=== PATIENT | male | born 1980 | race American Indian/Alaskan Native ===

== ENCOUNTER 2017-11-13 10:31 | Emergency (ER) | payer MEDICAID ==
[~2017-11-13] VITALS: Ht 167.6 cm; Wt 54.4 kg
[2017-11-13 10:44] VITALS: BP_SYST 138
[2017-11-13 11:40] VITALS: BP_SYST 138
== END 2017-11-13 11:39 | disposition home or self-care (01) ==
LOC: SED 10:31
DX: S40.861A Insect bite (nonvenomous) of right upper arm, initial encounter (principal); L53.8 Other specified erythematous conditions; W57.XXXA Bitten or stung by nonvenomous insect and other nonvenomous arthropods, initial encounter; Y93.89 Activity, other specified; Y92.89 Other specified places as the place of occurrence of the external cause; Y99.8 Other external cause status
CPT/HCPCS: 99283

== ENCOUNTER 2020-03-31 05:12 | Emergency (ER) | payer MEDICAID ==
[~2020-03-31] VITALS: Ht 167.6 cm; Wt 53.1 kg
[2020-03-31 05:20] VITALS: BP_SYST 142
[2020-03-31 06:10] VITALS: BP_SYST 133
== END 2020-03-31 06:10 | disposition home or self-care (01) ==
LOC: SED 05:12
DX: H60.11 Cellulitis of right external ear (principal); H93.11 Tinnitus, right ear
CPT/HCPCS: 99283

== ENCOUNTER 2020-08-10 14:46 | Emergency (ER) | payer MEDICAID ==
[~2020-08-10] VITALS: Ht 167.6 cm; Wt 54.0 kg
[2020-08-10 14:51] VITALS: BP_SYST 144
[2020-08-10] MEDS ORDERED: MECL-103 PO ×2 (15:15→15:27)
[2020-08-10] MEDS: MECLIZINE HCL 25 MG TABLET (ANITVERT) PO ONE (15:20)
[2020-08-10 15:36] VITALS: BP_SYST 144
== END 2020-08-10 15:37 | disposition home or self-care (01) ==
LOC: SED 14:46
DX: H93.11 Tinnitus, right ear (principal); R42 Dizziness and giddiness; Z79.899 Other long term (current) drug therapy
CPT/HCPCS: 99282; J8597

== ENCOUNTER 2022-02-20 16:15 | Emergency (ER) | payer MEDICAID ==
[~2022-02-20] VITALS: Ht 167.6 cm; Wt 54.4 kg
[~2022-02-20 16:15] MED LIST: MECL-103 PO
[2022-02-20 16:22] VITALS: BP_SYST 132
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
[2022-02-20] MEDS ORDERED: HYDR-3917 PO (18:03)
[2022-02-20] MEDS ORDERED: IBUP-1971 PO (18:03)
[2022-02-20 19:52] VITALS: BP_SYST 132
--- NOTE | 2022-02-20 19:52 | NUR ---
Patient given written and verbal discharge instructions and verbalizes understanding. ER MD discussed with patient the results and treatment provided. Patient in stable condition. ID arm band removed. IV catheter removed intact and dressing applied, no active bleeding. Rx of [place] and Ibuprofen given. Patient educated on pain management and to follow up with PMD. Pain Scale 0/10. Opportunity for questions provided and answered. Medication side effect fact sheet provided.
== END 2022-02-20 19:52 | disposition home or self-care (01) ==
LOC: SED 16:15
DX: S62.325A Displaced fracture of shaft of fourth metacarpal bone, left hand, initial encounter for closed fracture (principal); Z79.899 Other long term (current) drug therapy; V18.0XXA Pedal cycle driver injured in noncollision transport accident in nontraffic accident, initial encounter; Y93.89 Activity, other specified; Y92.89 Other specified places as the place of occurrence of the external cause; Y99.8 Other external cause status
CPT/HCPCS: 99283